=== PATIENT | male | born 1995 | race Two or more races ===

== ENCOUNTER 2017-05-16 12:41 | Emergency (ER) | payer MEDICAID ==
[~2017-05-16] VITALS: Ht 167.6 cm; Wt 77.1 kg
[2017-05-16 13:33] LABS: Basophils # (auto) 0.1 uL; Basophils % (auto) 0.8 % (0.0-2.0); Eosinophils # (auto) 0.1 uL; Hemoglobin 16.1 g/dL (13.5-17.5); Lymphocytes # (auto) 0.8 uL; Lymphocytes % (auto) 12.6 % (10.0-50.0); Mean Corpuscular Hemoglobin 31.8 pg (28.0-32.0); Mean Corpuscular Volume 90.9 fL (80.0-100.0); Mean Platelet Volume 7.4 fL (6.9-10.8); Monocytes # (auto) 0.3 uL; Monocytes % (auto) 4.8 % (0.0-12.0); Neutrophils # (auto) 4.9 uL; Neutrophils % (auto) 80.8 % (37.0-80.0); Nucleated Red Blood Cells % 0.1 %; Platelet Count (auto) 271 10^3/uL (140-450); Red Cell Distribution Width 13.3 % (11.8-14.3)
[2017-05-16 14:19] LABS: Urine Bilirubin Negative (Negative); Urine Blood Negative /uL (Negative); Urine Color Yellow (Yellow); Urine Glucose Normal (Normal); Urine Ketone Negative (Negative); Urine Mucus FEW (None Seen); Urine Nitrite Negative (Negative); Urine RBC <1 /hpf (0 - 3); Urine Squamous Epithelial Cell FEW /hpf (<5); Urine Urobilinogen Normal (Negative)
[2017-05-16 14:21] LABS: Albumin 4.2 g/dL (3.4-5.0); Anion Gap 7 (5-15); Aspartate Aminotransferase 21 U/L (15-37); BUN/Creatinine Ratio 13.6; Blood Urea Nitrogen 15 mg/dL (7-18); Calcium 8.8 mg/dL (8.5-10.1); Carbon Dioxide 25 mmol/L (21-32); Chloride 111 mmol/L (98-107); GFR African American 107 mL/min; GFR Non-African American 88 mL/min; Glucose 137 mg/dL (74-106); Magnesium 2.3 mg/dL (1.6-2.6); Potassium 3.7 mmol/L (3.5-5.1); Sodium 143 mmol/L (136-145)
[2017-05-16 14:22] LABS: Salicylate < 1.7 mg/dL (2.8-20.0)
[2017-05-16 14:24] LABS: Acetaminophen < 2.0 ug/mL (10-30); Alkaline Phosphatase 81 U/L (45-117); Bilirubin, Total 0.4 mg/dL (0.2-1.0); Total Protein 7.8 g/dL (6.4-8.2)
[2017-05-16 18:00] VITALS: BP 122/60
== END 2017-05-16 19:12 | disposition home or self-care (01) ==
LOC: EDBD 12:41 → ER 12:49
DX: T43.592A Poisoning by other antipsychotics and neuroleptics, intentional self-harm, initial encounter (principal); F41.9 Anxiety disorder, unspecified; F32.9 Major depressive disorder, single episode, unspecified; F20.0 Paranoid schizophrenia; Y92.89 Other specified places as the place of occurrence of the external cause
CPT/HCPCS: 36415; 71010; 80053; 80307; 80320; 80329; 81001; 83735; 85025; 93005; 94761; 99285; J7030

== ENCOUNTER 2017-10-07 13:11 | Emergency (ER) | payer MEDICAID ==
[~2017-10-07] VITALS: Ht 167.6 cm; Wt 72.6 kg
[2017-10-07] MEDS ORDERED: LORazepam 2MG/ML-1ML VIAL IV ONE (13:30)
[2017-10-07] MEDS ORDERED: SODIUM CHLORIDE 0.9% 1,000 ML IV ONE (13:51)
[2017-10-07] MEDS ORDERED: ALUM & MAG HYDROX-SIMETH LIQ(MAALOX) 30 ML PO ONE (14:00)
[2017-10-07] MEDS ORDERED: FAMOTIDINE 20 MG TAB PO ONE (14:00)
[2017-10-07] MEDS ORDERED: DONNATAL 5ml ORAL Elix (BELLADONNA ALK-PHENOBARB) PO ONE (14:00)
[2017-10-07 14:57] LABS: BUN/Creatinine Ratio 14.1; Eosinophils # (auto) 0.1 uL
[2017-10-07 14:58] LABS: Albumin 3.7 g/dL (3.4-5.0); Bilirubin, Total 0.2 mg/dL (0.2-1.0); Calcium 8.8 mg/dL (8.5-10.1); Magnesium 2.6 mg/dL (1.6-2.6); Total Protein 7.9 g/dL (6.4-8.2)
[2017-10-07] MEDS ORDERED: HALOPERIDOL LACTATE 5 MG/ML INJ VIAL IM ONE (15:00)
[2017-10-07 15:01] LABS: Basophils # (auto) 0.1 uL; Basophils % (auto) 1.3 % (0.0-2.0); Eosinophils % (auto) 1.1 % (0.0-7.0); Hematocrit 43.9 % (41.0-53.0); Hemoglobin 15.6 g/dL (13.5-17.5); Lymphocytes # (auto) 1.3 uL; Lymphocytes % (auto) 19.8 % (10.0-50.0); Mean Corpuscular Hemoglobin 32.7 pg (28.0-32.0); Mean Corpuscular Hgb Conc. 35.5 g/dL (32.0-36.0); Mean Corpuscular Volume 92.1 fL (80.0-100.0); Monocytes # (auto) 0.5 uL; Monocytes % (auto) 7.4 % (0.0-12.0); Neutrophils # (auto) 4.8 uL; Neutrophils % (auto) 70.4 % (37.0-80.0); Nucleated Red Blood Cells % 0.3 %; Platelet Count (auto) 377 10^3/uL (140-450); Red Blood Cells 4.77 10^6/uL (4.5-5.90); Red Cell Distribution Width 12.8 % (11.8-14.3); White Blood Cell 6.8 10^3/uL (4.4-10.8)
[2017-10-07 15:44] LABS: Urine Bacteria NONE SEEN /hpf (None Seen); Urine Blood Negative /uL (Negative); Urine Specific Gravity 1.009 (1.001-1.035); Urine WBC <1 /hpf (0 - 3)
[2017-10-07 15:51] LABS: Alcohol, Urine < 3.0 mg/dL (0-5); Amphetamine Screen, Urine NEGATIVE (NEGATIVE); Barbiturate Scree,Urine NEGATIVE (NEGATIVE); Benzodiazephine Screen, Urine NEGATIVE (NEGATIVE); Cannabinoid Screen, Urine NEGATIVE (NEGATIVE); Cocaine Screen, Urine NEGATIVE (NEGATIVE); Opiate Scree,Urine NEGATIVE (NEGATIVE); Phencyclidine Screen, Urine NEGATIVE (NEGATIVE)
[2017-10-08] MEDS ORDERED: QUET200T44 (10:49)
[2017-10-08] MEDS ORDERED: QUET100T46 (10:49)
[2017-10-08] MEDS: QUEtiapine FUMARATE 100 MG TAB PO SCH ×2 (11:27→22:01)
[2017-10-08] MEDS ORDERED: TEMAZEPAM 15 MG CAP PO ONE (21:00)
[2017-10-09] MEDS: QUEtiapine FUMARATE 100 MG TAB PO SCH ×4 (10:13→22:38)
[2017-10-09] MEDS ORDERED: TEMAZEPAM 15 MG CAP PO ONE (22:15)
[2017-10-09] MEDS ORDERED: QUEtiapine FUMARATE 25 MG TAB ONE (22:33)
[2017-10-09] MEDS ORDERED: QUEtiapine FUMARATE 100 MG TAB ONE (22:33)
[2017-10-09] MEDS ORDERED: TEMAZEPAM 15 MG CAP ONE (22:33)
[2017-10-10] MEDS: QUEtiapine FUMARATE 100 MG TAB PO SCH ×2 (11:09→22:04)
[2017-10-10] MEDS ORDERED: QUEtiapine FUMARATE 100 MG TAB ONE (21:47)
[2017-10-10] MEDS ORDERED: QUEtiapine FUMARATE 25 MG TAB ONE (21:48)
[2017-10-10] MEDS ORDERED: TEMAZEPAM 15 MG CAP PO ONE (22:00)
[2017-10-11 06:40] VITALS: BP 102/55
== END 2017-10-11 13:55 | disposition home or self-care (01) ==
LOC: EDBD 13:11 → ER 13:11
DX: F20.0 Paranoid schizophrenia (principal); F32.9 Major depressive disorder, single episode, unspecified; R45.851 Suicidal ideations; R42 Dizziness and giddiness
CPT/HCPCS: 36415; 70450; 71046; 80053; 80307; 81001; 83735; 84443; 85025; 93005; 96361; 96372; 96374; 99285; J7030

== ENCOUNTER → 2024-09-08 | Emergency (ER) | payer MEDICAID ==
[~2024-09-08] VITALS: Ht 177.8 cm; Wt 72.7 kg
[~2024-09-08] MED LIST: QUET100T47; QUET200T45
[2024-09-08 13:50] VITALS: RESP 19
--- NOTE | 2024-09-08 13:58 | ED.PDOC ---
Psychiatric HPI Comments 29 y/o M, with PMHX of schizophrenia MOHINI presents to the ED for CC of overdose. Patient states, that he ingested 70 capsules of Zoloft x1hour with intent to take his life. Per EMS, patient's prescription for Zoloft was refilled yesterday (09/07/17) and threw away 30 capsules with no apparent reason. Per EMS, this is patient's second suicidal attempt; 1st attempt in 2018. Patient currently complains of nausea and shortness of breath. Patient endorses on suicidal ideation and auditory hallucinations. Patient denies homicidal ideation or visual hallucinations. No other symptoms or modifying factors at this time. Chief Complaint: Overdose Time Seen by MD: 13:30 Primary Care Provider: UNKNOWN Reviewed Notes: Nurses Notes, Relay Adjuster Notes, Medications, Allergies Information Source: Patient, Emergency Med Personnel Mode of Arrival: EMS Severity: Able to Care for Self Severity of Pain: None Severity of Mental Status: Moderate Severity of Symptoms: Mild Timing: Minutes Duration: Since onset Prehospital treatment: None Presents with: Suicidal Ideation Ingestion: Intentional Current substance abuse: Other (zoloft) Stressors: None History of: Schizophrenia Quality: Hallucinations Location: None Location of pain or injury: None Associated signs and symptoms: Hallucinations Past Medical History PAST MEDICAL HISTORY: Depression, Schizophrenia Surgical History: Denies all surgeries Family History Family History: Unobtainable Social History Smoker: Non-Smoker Alcohol: Denies ETOH Use Drugs: Denies Drug Use Lives In: Home Constitutional: denies: chills, diaphoresis, fatigue, fever, malaise, sweats, weakness, others EENTM: denies: blurred vision, double vision, ear bleeding, ear discharge, ear drainage, ear pain, ear ringing, eye pain, eye redness, hearing loss, mouth pain, mouth swelling, nasal discharge, nose bleeding, nose congestion, nose pain, photophobia, tearing, throat pain, throat swelling, voice changes, others Respiratory: reports: shortness of breath; denies: cough, hemoptysis, orthopnea, SOB at rest, SOB with excertion, stridor, wheezing, others Cardiovascular: denies: chest pain, dizzy spells, diaphoresis, Dyspnea on exertion, edema, irregular heart beat, left arm pain, lightheadedness, palpit ations, PND, syncope, others Gastrointestinal: reports: nausea; denies: abdomen distended, abdominal pain, blood streaked bowels, constipated, diarrhea, dysphagia, difficulty swallowing, hematemesis, melena, poor appetite, poor fluid intake, rectal bleeding, rectal pain, vomiting, others Genitourinary: denies: burning, dysuria, flank pain, frequency, hematuria, incontinence, penile discharge, penile sore, pain, testicle pain, testicle swelling, urgency, others Neurological: denies: dizziness, fainting, headache, left sided numbness, left sided weakness, numbness, paresthesia, pre-existing deficit, right sided numbness, right sided weakness, seizure, speech problems, tingling, tremors, weakness, others Musculoskeletal: denies: back pain, gout, joint pain, joint swelling, muscle pain, muscle stiffness, neck pain, others Integumetry: denies: bruises, change in color, change in hair/nails, dryness, laceration, lesions, lumps, rash, wounds, others Allergic/Immunocompromised: denies: Difficulty Healing, Frequent Infections, Hives, Itching, others Hematologic/Lymphatic: denies: anemia, blood clots, easy bleeding, easy bruising, swollen glands, others Endocrine: denies: excessive hunger, excessive sweating, excessive thirst, excessive urination, flushing, intolerance to cold, intolerance to heat, unexplained weight gain, unexplained weight loss, others Psychiatric: denies: anxiety, bipolar disorder, depression, hopeless, panic di sorder, schizophrenia, sleepless, suicidal, others All Other Systems: Reviewed and Negative Physical Exam General Appearance: Moderate Distress HEENT: Normal ENT Inspection, Pharynx Normal, TMs Normal Neck: Full Range of Motion, Non-Tender, Normal, Normal Inspection Respiratory: Chest Non-Tender, Lungs Clear, No Accessory Muscle Use, No Respiratory Distress, Normal Breath Sounds Cardiovascular: No Edema, No JVD, No Murmur, No Gallop, Normal Peripheral Pulses, Regular Rate/Rhythm Breast Exam: Deferred Gastrointestinal: No Organomegaly, Non Tender, No Pulsatile Mass, Normal Bowel Sounds, Soft Genitalia: Deferred Pelvic: Deferred Rectal: Deferred Extremities: No calf tenderness, Normal capillary refill, Normal inspection, No pedal edema Musculoskeletal : Apperance: Normal Neurologic: Alert, No Motor Deficits, No Sensory Deficits Cerebellar Function: NOT DONE Reflexes: NOT DONE Skin: Dry, Normal Color, Warm Peripheral Pulses: 3+ Radial (R), 3+ Radial (L) Lymphatic: No Adenopathy Was a procedure done? Was a procedure done?: No Psych Differential Dx Psych. Differential Dx: Anxiety, Depression, Schizoprenia, Suicidal OD Differential Dx: Drug Overdose, Intentional X-Ray, Labs, Meds, VS Vital Signs Date Time Temp Pulse Resp B/P (MAP) Pulse Ox O2 Delivery O2 Flow Rate FiO2 09/08/24 14:10 98.1 128 18 129/85 (100) 98 98.1 09/08/24 13:50 19 Room Air* 0 21 09/08/24 13:49 97.2 120 16 128/83 (98) 98 09/08/24 13:20 129 Current Medications Medications (Trade) Dose Ordered Sig/Diego Route Start Time Stop Time Status Last Admin Charcoal (Actidose-Aqua) 50 gm ONCE ONCE PO 09/08/24 13:45 09/08/24 13:46 DC 09/08/24 14:02 Patient alert. Vitals stable. History of psychiatric illness. Answering all questions pain Stated that he has taken Zoloft. Unknown the quantity. Possibly recently. Had to give activated charcoal. EKG reviewed QT interval not prolonged. Last time he tried to harm himself many years ago was by hanging. Continue to monitor. Psychiatric evaluation. Time of 1ST Reevaluation: 14:00 Reevaluation 1ST: Unchanged Patient Education/Counseling: Diagnosis, Treatment Family Education/Counseling: No Family Present Additional Information I reviewed the following notes from patient's past medical encounters: 10/07/17 DX: PARANOID SCHIZOPHRENIA The following tests were ordered, and results were reviewed by me: LABS Additional Information was gathered from interviewing the following independent historians: EMS I discussed treatment and results with medical personnel and: PATIENT Departure 1 Departure Time of Disposition: 14:35 Impression: Primary Impression: Suicidal ideation Disposition: 30 STILL A PATIENT Condition: Good Critical Care Note Critical Care Time?: No Stability Stability form required: No Heart Score Heart Score: Heart Score Response (Comments) Value History Slightly Suspicious 0 EKG Normal 0 Age <45 0 Risk Factors No known risk factors 0 Troponin N/A 0 Total 0 I personally scribed for TAMI VALLE MD ([email or web address]) on 09/08/24 at 13:58. Electronically submitted by Connie [email or web address]). I personally scribed for TAMI VALLE MD ([email or web address]) on 09/08/24 at 14:15. Electronically submitted by Connie Villegas ([email or web address]). TAMI VALLE MD Sep 08, 2024 13:58
[2024-09-08] MEDS: ACTIVATED CHARCOAL 50 GM/240 ML SOL PO ONE (14:02)
[2024-09-08 14:52] LABS: Basophils # (auto) 0 10 ^3/uL (0-0.2); Basophils % (auto) 0.3 % (0.0-2.0); Eosinophils # (auto) 0.1 10 ^3/uL (0-0.8); Eosinophils % (auto) 0.9 % (0.0-7.0); Hematocrit 44.3 % (41.0-53.0); Hemoglobin 15.4 g/dL (13.5-17.5); Lymphocytes % (auto) 15.1 % (10.0-50.0); Mean Corpuscular Hemoglobin 31.8 pg (28.0-32.0); Mean Corpuscular Hgb Conc. 34.7 g/dL (32.0-36.0); Mean Corpuscular Volume 91.7 fL (80.0-100.0); Monocytes # (auto) 0.3 10 ^3/uL (0-1.3); Monocytes % (auto) 4.8 % (0.0-12.0); Neutrophils # (auto) 5.1 10 ^3/uL (1.6-8.6); Neutrophils % (auto) 78.9 % (37.0-80.0); Platelet Count (auto) 303 10^3/uL (140-450); Red Blood Cells 4.83 10^6/uL (4.5-5.90); Red Cell Distribution Width 13.6 % (11.8-14.3); White Blood Cell 6.4 10^3/uL (4.4-10.8)
[2024-09-08 14:59] LABS: Anion Gap 8 (5-15); Carbon Dioxide 25 mmol/L (20-31); Chloride 106 mmol/L (98-107); Potassium 4.1 mmol/L (3.5-5.1); Sodium 139 mmol/L (136-145)
[2024-09-08 15:00] LABS: Calcium 9.9 mg/dL (8.7-10.4)
[2024-09-08 15:05] LABS: BUN/Creatinine Ratio 10.6 (10.0-20.0); Blood Alcohol 3.6 mg/dL (<10); Blood Urea Nitrogen 13 mg/dL (9-23)
[2024-09-08 15:06] LABS: Glucose 181 mg/dL (74-106)
[2024-09-08 15:07] LABS: Acetaminophen < 2.0 UG/ML (10.0-20.0); Salicylate < 3.0 mg/dL (-30)
--- NOTE | 2024-09-08 19:06 | ECG ---
[facility] Test Date: 2024-09-08 Test Time: 13:17:05 Pat Name: MINESH DE LOS SANTOS Department: ED Room: Gender: M Screen Operator: TRACI : 1995 Requested By: TAMI VALLE Order Number: [id number] Reading MD: Nikko Rueda Measurements Intervals [place] Rate: 129 P: 18 MI: 108 QRS: 1 QRSD: 84 T: 53 QT: 293 QTc: 430 Interpretive Statements Sinus tachycardia Artifact in lead(s) I,II,aVR Electronically Signed On 09-09-2024 12:10:43 PST by Nikko Rueda Please click the below link to view image of tracing.
[2024-09-08 19:40] VITALS: RESP 19
[2024-09-08 21:50] VITALS: PULSE 124; RESP 20; O2SAT 98
[2024-09-08] MEDS: ONDANSETRON HCL 4 MG/2 ML VIAL IV ONE (23:24)
[2024-09-08] MEDS: SODIUM CHLORIDE 0.9% 1,000 ML IV ONE (23:24)
--- NOTE | 2024-09-09 02:59 | DVHINCON2 ---
Date of Service if different f: Sep 09, 2024 Time of Service: 02:36 Consult Consult Note PSYCHIATRY ED NEW CONSULT HPI: 29 yo M pt with PPH of schizophrenia presents to ED BIBA for safety, psychiatric stabilization and possible med initiation/optimization in setting of suicide attempt via intentional drug OD. Psychiatry consulted for safety evaluation and recommendations in context of current presentation Per pt, reports intentionally ingested about 50 tabs of sertraline 50 mg qd as a suicide attempt "it was a cry for help" Reports over past several days experiencing worsening depressed mood, negative thoughts, anhedonia, confusion, low fatigue, and amotivation resulting in suicide attempt [employer]. Reports primary stress as recent loss of family member, concerns about his cousins well-being, and limited support system. No overt manic, psychotic, cognitive, dissociative phenomena, panic, or somatic symptoms noted Pt currently does have psychiatrist out in community. Currently rx'd sertraline, seroquel and depakote - overall med compliant. Denies self medicating mood symptoms with ETOH, THC or IDU but ?, no children, unemployed lives with parent, no legal issu es, limited support system noted (immediate family). Unknown trauma hx. Unknown FH. No acute medical issues, hx of seizures/TBI, or recent head injuries, NKDA Does have hx of suicide attempt x 1 via OD in 2018 in setting of psychosis resulting in several prior psych hospitalizations including recent admission at [facility] for SI. Denies history of violence, unprovoked aggression, or assaultive behaviors. Does not have access to firearms. Currently endorses passive SI. Denies HI/AVH MSE: General Appearance/Behavior: Alert and awake; appears stated age, well developed, fair grooming and hygiene; calm and cooperative, fair eye contact, no PMA/PMR Speech: coherent, rrr Thought Process: linear, logical, appears goal-directed Thought Content: Abnormal Thoughts and Perceptions: None Homicidality / Violent Thoughts: None Suicidality: passive SI Hallucinations: denies AVH Delusions: denies paranoia, persecutory, or grandiose delusions Obsessions /compulsions : None Judgment and Insight: improved/questionable judgment with fair insight Mood & Affect: "okay" with mood-congruent, somewhat constricted/restricted, appropriate Orientation: oriented to person, place, time Attention/Concentration: appears intact Memory: grossly intact Language: no unusual or inappropriate language Assessment: 29 yo M pt with PPH of schizophrenia presents to ED BIBA for safety, psychiatric stabilization and possible med initiation/optimization in setting of suicide attempt via intentional drug OD of ~ 50 tabs of sertraline 50 mg qd Pt is currently expressing some SI in setting of several recent acute life stressors (see hpi) resulting in suicide attempt. Limited protective factors presently Pt agrees to talk with staff instead of acting on any suicidal feelings while in ED. Pt medically cleared. Thus, acute risk is moderate and hence is appropriate for inpatient psychiatry admission. Pt will benefit from inpatient psychiatric admission for safety, psychiatric stabilization and possible medication initiation/optimization. Pt willing to transfer to inpt psych hospitalization voluntarily. Consider 5150 hold for DTS ONLY if needed for transfer or if no voluntary beds are available Primary Diagnosis: Major Depressive disorder unspecified. Schizophrenia, hx Recommend vol transfer to inpt psych facility for higher level of care per pts request 1:1 sitter is recommended Recommend HOLDING CURRENT outpt med regimen in setting of recent sertraline OD Defer psychotropic med initiation to accepting inpt psych facility If patient later refuses voluntary hospitalization/ requests to be discharged from ED prior to transfer, please reconsult telepsych services to evaluate for 5150 hold. Pt verbalized understanding and is receptive to above tx plan This case was discussed with ED nurse/provider and all parties in agreement with above tx plan Jordan Olmstead MD Plan discussed with: Patient JORDAN OLMSTEAD MD Sep 09, 2024 02:59
[2024-09-09 08:00] VITALS: PULSE 110; RESP 18; O2SAT 97
[2024-09-09 17:42] VITALS: BP 116/72; PULSE 97; RESP 18; TEMP 98.4; O2SAT 97
== END | disposition short-term general hospital (02) ==
LOC: EDUNIT# 13:03 → ER 13:07 → EDBD 13:07
DX: T43.222A Poisoning by selective serotonin reuptake inhibitors, intentional self-harm, initial encounter (principal); T14.91XA Suicide attempt, initial encounter; F20.9 Schizophrenia, unspecified; F32.9 Major depressive disorder, single episode, unspecified; Z63.4 Disappearance and death of family member; Z91.51 Personal history of suicidal behavior; Y92.89 Other specified places as the place of occurrence of the external cause
CPT/HCPCS: 36415; 80048; 80320; 80329; 85025; 93005; 96374; 99285; J2405; J7030